=== PATIENT | female | born 1965 | race Caucasian/White ===

== ENCOUNTER 2018-06-23 18:29 | Emergency (ER) | payer OTHER, BC ==
[2018-06-23 18:42] VITALS: PULSE 81; O2SAT 99
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
[2018-06-23] MEDS ORDERED: Lidocaine 5% Patch TD STA (19:55)
[2018-06-23 23:09] VITALS: BP 140/82; RESP 18; TEMP 97.9
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
== END 2018-06-23 21:09 | disposition home or self-care (01) ==
LOC: ED 18:29
DX: M54.5 Low back pain (principal); V03.90XS Pedestrian on foot injured in collision with car, pick-up truck or van, unspecified whether traffic or nontraffic accident, sequela; Y92.410 Unspecified street and highway as the place of occurrence of the external cause
CPT/HCPCS: 72131; 72192; 73552; 96372; 99283; J1885